=== PATIENT | male | born 1980 | race Two or more races ===

== ENCOUNTER 2017-03-23 22:16 | Emergency (ER) | payer OTHER ==
[2017-03-23 22:31] VITALS: BP 125/70; PULSE 55; RESP 18; TEMP 98.2; O2SAT 95
--- NOTE | 2017-03-23 22:49 | EDPHY ---
H & P Stated Complaint: R ankle injury HPI/ROS: HPI CHIEF COMPLAINT: Right ankle pain HISTORY OF PRESENT ILLNESS: This patient very pleasant 28-year-old male, otherwise healthy no significant medical history does not take any daily medications, no surgical history presents emergency room with right ankle pain. Patient reports to me that he jumped off the edge of a trailer today while unloading something. He had inversion mechanism of his right ankle. Since then he has had some mid ankle pain and right lateral ankle pain. Has been walking on it he has been using a cane to help assist. Placed a Fredis wrap splint on it. Decided come the emergency room as he has ongoing pain. Denies any other areas of injury specifically denies knee pain, or tib-fib pain. Past Medical History: No significant medical history Past Surgical History: No significant surgical history Social History: Denies daily use drugs alcohol tobacco products. Family History: Noncontributory. ROS REVIEW OF SYSTEMS: A comprehensive 10 point review of systems is otherwise negative aside from elements mentioned in the history of present illness. Exam Constitutional triage nursing summary reviewed, vital signs reviewed, awake/ alert. Eyes normal conjunctivae and sclera, EOMI, PERRLA. HENT normal inspection, atraumatic, moist mucus membranes, no epistaxis, neck supple/ no meningismus, no raccoon eyes. Respiratory clear to auscultation bilaterally, normal breath sounds, no respiratory distress, no wheezing. Cardiovascular rate normal, regular rhythm, no murmur, no edema, distal pulses normal. Gastrointestinal soft, non-tender, no rebound, no guarding, normal bowel sounds, no distension, no pulsatile mass. Genitourinary no CVA tenderness. Musculoskeletal right lower extremity: Neurovascular intact. Good distal pulse. Good cap refill, full range of motion. Mild tenderness palpation over the lateral malleolus, mid foot stable. Neurovascular intact. Full range of motion. no midline vertebral tenderness, full range of motion, no calf swelling , no tenderness of extremities, no meningismus, good pulses, neurovascularly intact. Skin pink, warm, & dry, no rash, skin atraumatic. Neurologic awake, alert and oriented x 3, AAOx3, moves all 4 extremities equally, motor intact, sensory intact, CN II-XII intact, normal cerebellar, normal vision, normal speech. Psychiatric normal mood/affect. Heme/Lymph/Immune no lymphadenopathy. Differential Diagnosis: Includes but is not limited to in a particular order right ankle sprain, right ankle contusion, fracture Medical Decision Making: Plan for this patient x-ray right ankle. Re-evaluation: ED x-ray ankle left. Shows lateral ankle sprain. No fracture. Patient placed on walking boot. Comfortable this plan orthopedic follow-up. Return emergency room if there is any worsening symptoms questions concerns. Patient understands. Source: Patient - Personal History Current Tetanus/Diphtheria Vaccine: No Current Tetanus Diphtheria and Acellular Pertussis (TDAP): No - Medical/Surgical History Hx Asthma: No Hx Chronic Respiratory Disease: No Hx Diabetes: No Hx Cardiac Disease: No Hx Renal Disease: No Hx Cirrhosis: No Hx Alcoholism: No Hx HIV/AIDS: No Hx Splenectomy or Spleen Trauma: No Other PMH: tonsillectomy. - Social History Smoking Status: Never smoked Constitutional: Initial Vital Signs Temperature (C) 36.8 C 03/23/17 22:28 Heart Rate 55 L 03/23/17 22:28 Respiratory Rate 18 03/23/17 22:28 Blood Pressure 125/70 H 03/23/17 22:28 O2 Sat (%) 95 03/23/17 22:28 O2 Delivery Mode Room Air Allergies/Adverse Reactions: No Known Allergies Allergy (Unverified 03/23/17 22:31) Home Medications: Medication Instructions Recorded NK [No Known Home Meds] 03/23/17 Medical Decision Making - Diagnostics Imaging Results: Imaging Impressions Ankle X-Ray 03/23/17 22:33 Impression: Lateral ankle sprain. Departure - Departure Disposition: Home, Routine, Self-Care Clinical Impression: Ankle sprain Qualifiers: Encounter type: initial encounter Involved ligament of ankle: unspecified ligament Laterality: right Qualified Code(s): S93.401A - Sprain of unspecified ligament of right ankle, initial encounter Condition: Good Instructions: Ankle Sprain (ED) Additional Instructions: 1. Make sure to elevate her foot. 2. Ice your ankle. 3. Take anti-inflammatory pain medicine like Tylenol Motrin for pain control. 4. Follow up with Orthopedics. Referrals: SAVANA BELL [Primary Care Provider] - As per Instructions
== END 2017-03-23 23:15 | disposition home or self-care (01) ==
DX: S93.401A Sprain of unspecified ligament of right ankle, initial encounter (principal); X50.9XXA Other and unspecified overexertion or strenuous movements or postures, initial encounter; Y99.8 Other external cause status; Y93.39 Activity, other involving climbing, rappelling and jumping off
CPT/HCPCS: L4386

== ENCOUNTER 2018-01-18 11:52 | Emergency (ER) | payer OTHER ==
--- NOTE | 2018-01-18 12:50 | EDPHY ---
H & P Stated Complaint: L ankle injury--rolled ankle playing with kids Time Seen by Provider: 01/18/18 12:49 HPI/ROS: HPI: This is a 37-year-old male who presents with Chief Complaint: Left ankle injury, rolled ankle playing with kids Location: Left medial ankle Quality: Injury Duration: Prior to arrival Signs and Symptoms: No bleeding, no radiation, no numbness, no weakness, no tingling, no incontinence, no decreased range of motion, + swelling, + pain, no fever Timing: Acute Severity: Moderate Context: Patient was riding his child's scooter this morning when he inverted his ankle accidentally. Patient reports that he felt immediate, constant, moderate, nonradiating pain in his medial portion of his ankle as well as at the base of his 5th toe. He reports that he immediately started to have swelling and bruising. Pain is worsened with weight-bearing. Patient sustained a right ankle sprain 1 month ago. He has a CAM boot at home that he wore to the emergency room today. He applied ice immediately with minimal relief. Denies any paresthesias, weakness, decreased range of motion. Modifying Factors: None Comment: ROS: see HPI Constitutional: No fever, no chills, no weight loss Eyes: No blurred vision Respiratory: No shortness of breath, no cough Cardiovascular: No chest pain Gastrointestinal: No nausea, no vomiting no diarrhea Genitourinary: No dysuria Extremities: No myalgias Neurologic: No weakness, no numbness Skin: No rashes Hematologic: No bruising, no bleeding MEDICAL/SURGICAL/SOCIAL HISTORY: Medical history: Generally healthy. Does not take any regular medications. Surgical history: Tonsillectomy Social history: with children. CONSTITUTIONAL: Polite and cooperative adult male, awake and alert, no obvious distress HEENT: Atraumatic and normocephalic, PERRL, EOMI. Nares patent; no rhinorrhea; no nasal mucosal edema. Tympanic membranes clear. Oropharynx clear, no exudate and moist pink mucosa. Airway patent. No lymphadenopathy. No meningismus. Cardiovascular: Normal S1/S2, regular rate, regular rhythm, without murmur rub or gallop. PULMONARY/CHEST: Symmetrical and nontender. Clear to auscultation bilaterally. Good air movement. No accessory muscle usage. ABDOMEN: Soft, nondistended, nontender, no rebound, no guarding, no peritoneal signs, no masses or organomegaly. No CVAT. EXTREMITIES: 2/2 pulses, strength 5/5, left Ankle: Moderate medial swelling and tenderness to palpation over the malleolus; Plantar flexion to 50, dorsiflexion to 20. Foot inversion to 35 degree. Moderate tenderness/ swelling Anterior talofibular ligament. No tenderness/swelling Calcaneofibular ligament, no tenderness/swelling posterior talofibular ligament, no tenderness/ swelling posterior inferior tibiofibular ligament. Tenderness swelling noted at the base of the 5th digit. Achilles tendon intact. no deformities, no clubbing, no cyanosis or edema. NEUROLOGICAL: no focal neuro deficits. GCS 15. SKIN: Warm and dry, no erythema. no rash. Good capillary refill. Source: Patient Exam Limitations: No limitations - Medical/Surgical History Hx Asthma: No Hx Chronic Respiratory Disease: No Hx Diabetes: No Hx Cardiac Disease: No Hx Renal Disease: No Hx Cirrhosis: No Hx Alcoholism: No Hx HIV/AIDS: No Hx Splenectomy or Spleen Trauma: No Other PMH: tonsillectomy - Social History Smoking Status: Never smoked Constitutional: Initial Vital Signs Temperature (C) 37.0 C 01/18/18 12:09 Heart Rate 76 01/18/18 12:09 Respiratory Rate 18 01/18/18 12:09 Blood Pressure 134/80 H 01/18/18 12:09 O2 Sat (%) 98 01/18/18 12:09 O2 Delivery Mode Room Air Allergies/Adverse Reactions: No Known Allergies Allergy (Verified 01/18/18 12:09) Home Medications: Medication Instructions Recorded oxyCODONE/APAP 5/325 [Percocet 1 - 2 tab PO Q4H PRN #10 tab 01/18/18 5/325 (*)] Medical Decision Making - Diagnostics Imaging Results: Imaging Impressions Ankle X-Ray 01/18/18 12:11 Impression: Left ankle negative for fracture. 3 Views Left Foot: Reason for examination: Pain following trauma. Findings: There is a displaced avulsion fracture at the base of the fifth metatarsal. The avulsed fragment is also rotated. Soft tissue swelling is seen in the region. No other fracture is identified. Impression: Avulsed fracture fragment at the base of the fifth metatarsal with rotation of the fragment. Foot X-Ray 01/18/18 12:58 Impression: Left ankle negative for fracture. 3 Views Left Foot: Reason for examination: Pain following trauma. Findings: There is a displaced avulsion fracture at the base of the fifth metatarsal. The avulsed fragment is also rotated. Soft tissue swelling is seen in the region. No other fracture is identified. Impression: Avulsed fracture fragment at the base of the fifth metatarsal with rotation of the fragment. ED Course/Re-evaluation: Left foot x-ray, left ankle x-ray ordered Ice pack applied No signs of neurovascular compromise/tenting of skin/compartment syndrome/ extremities and joints examined above and below area of concern and are neurovascularly intact. X-ray my read shows displaced avulsion fracture at the base of the fifth metatarsal. The avulsed fragment is also rotated. Soft tissue swelling is seen in the region. No other fracture is identified. Patient already has walking boot, given crutches, podiatry follow-up Prescription for Percocet dispense #10 Given This patient was seen under the supervision of my secondary supervising physician. I evaluated care for this patient independently. Discussed this patient with Dr. Babb who did not see the patient. Differential Diagnosis: Differential diagnosis includes but is not limited to tibia fracture, fibula fracture, LisFranc fracture, metatarsal fracture. Departure - Departure Disposition: Home, Routine, Self-Care Clinical Impression: Fracture of fifth metatarsal bone of left foot Qualifiers: Encounter type: initial encounter Fracture type: closed Fracture alignment: displaced Qualified Code(s): S92.352A - Displaced fracture of fifth metatarsal bone, left foot, initial encounter for closed fracture Condition: Good Instructions: Toe Fracture (ED) Additional Instructions: Wear the walking boot while out of bed until pain free and seen by Podiatry. Use crutches to aid ambulation. Start with toe-touch weight-bearing status. Take Tylenol 650 mg every 4 hours and/or Ibuprofen 600 mg every 8 hours with food as needed for pain. Use Percocet every 6 hours as needed for severe/break through pain. Do not use Tylenol and Percocet concomitantly. Apply ice for 30 minutes at a time; 2-3 times per day for the next 1-2 days. Follow up with Podiatry in 5-7 days at which time they will evaluate and recommend with you if conservative management versus further adjuvant therapy is indicated. Return to the ER immediately if you experience new or worsening pain, discoloration, numbness, tingling, or any other symptoms that concern you. Referrals: SAVANA BELL [Primary Care Provider] - As per Instructions Flory Keyes DPM [Doctor of Podiatric Medicine] - As per Instructions Prescriptions: oxyCODONE/APAP 5/325 [Percocet 5/325 (*)] 1 - 2 tab PO Q4H PRN #10 tab PRN Reason: Pain, Severe
[2018-01-18 14:03] VITALS: BP 136/80
== END 2018-01-18 14:03 | disposition home or self-care (01) ==
DX: S92.352A Displaced fracture of fifth metatarsal bone, left foot, initial encounter for closed fracture (principal); X50.9XXA Other and unspecified overexertion or strenuous movements or postures, initial encounter; Y99.8 Other external cause status; Y93.89 Activity, other specified